=== PATIENT | male | born 1950 | race Caucasian/White ===

== ENCOUNTER 2017-08-27 11:21 | Emergency (ER) | payer MEDICARE, BC ==
[~2017-08-27] VITALS: Ht 180.3 cm; Wt 75.4 kg
[2017-08-27 12:13] LABS: HEMATOCRIT 43.9 % (39.2-51.8); HEMOGLOBIN 14.9 g/dL (13.7-18.0); WHITE BLOOD COUNT 8.3 x10^3/uL (3.4-10)
[2017-08-27 12:27] LABS: BLOOD UREA NITROGEN 13 mg/dL (7-18)
[2017-08-27 12:30] LABS: ASPARTATE AMINO TRANSFERASE 7 U/L (15-37)
[2017-08-27 13:04] VITALS: BP 108/57
== END 2017-08-27 13:53 | disposition home or self-care (01) ==
LOC: ED 13:12
DX: R50.9 Fever, unspecified (principal); R11.0 Nausea; R63.4 Abnormal weight loss; G89.29 Other chronic pain; M54.2 Cervicalgia; M54.6 Pain in thoracic spine
CPT/HCPCS: 36415; 71020; 80053; 85025; 99285